=== PATIENT | female | born 1945 | race Caucasian/White ===

== ENCOUNTER 2018-11-14 16:12 | Emergency (ER) | payer OTHER ==
[~2018-11-14] VITALS: Ht 172.7 cm; Wt 75.8 kg
[~2018-11-14 16:12] MED LIST: GLIPIZIDE-METF1 EAC2 PO; KEFLEX500 MG PO; LISINOPRIL-HCT1 EAC1 PO; NORCO 5-325 TA1 EACH PO; PRAVACHOL20 MG PO
[2018-11-14 17:02] LABS: ABSOLUTE BASOPHILS 0.1 thou/uL (0.0-0.2); ABSOLUTE EOSINOPHILS 0.1 thou/uL (0.0-0.7); ABSOLUTE LYMPHOCYTES 1.9 thou/uL (0.8-5.3); ABSOLUTE MONOCYTES 0.6 thou/uL (0.0-1.2); BASOPHILS 0.6 %; EOSINOPHILS 0.7 %; HEMOGLOBIN 12.8 gm/dL (12.0-15.0); LYMPHOCYTES 22.2 %; MCH 31.4 pg (26.0-34.0); MCHC 33.8 g/dL (28.0-37.0); MONOCYTES 6.9 %; MPV 7.6 fl. (7.2-11.1); NUCLEATED RBCS 0 /100WBC; PLATELET COUNT* 224 thou/uL (150-400); POLYS 69.6 %; RBC 4.08 mil/uL (4.20-5.00); RDW-CV 13.3 % (10.5-14.5); WBC 8.7 thou/uL (4.0-11.0)
[2018-11-14 17:08] LABS: CALCIUM 9.3 mg/dL (8.5-10.1); POTASSIUM 3.3 mmol/L (3.5-5.1)
[2018-11-14] MEDS ORDERED: NORCO 5-325 TA1 EACH PO (18:07)
[2018-11-14 18:08] LABS: ESR (SEDRATE) 22 mm/hr (0-30)
[2018-11-14 18:25] VITALS: BP 175/70
== END 2018-11-14 18:27 | disposition home or self-care (01) ==
LOC: M.ERS 16:12
PROVIDERS: Nurse Practitioner Family
DX: M17.12 Unilateral primary osteoarthritis, left knee (principal); E11.9 Type 2 diabetes mellitus without complications; I10 Essential (primary) hypertension; E78.5 Hyperlipidemia, unspecified; Z88.5 Allergy status to narcotic agent